=== PATIENT | male | born 1950 | race Caucasian/White ===

== ENCOUNTER 2018-07-09 06:01 | Day surgery (SDC) | payer OTHER ==
[2018-07-09] MEDS ORDERED: fentaNYL 100 MCG/2 ML SDV IV ONE ×4 (06:02→07:19)
[2018-07-09] MEDS ORDERED: Midazolam 1 MG/ML 2 ML SDV IV ONE ×7 (06:02→07:17)
[2018-07-09] MEDS ORDERED: Midazolam 1 MG/ML 2 ML SDV ONE (06:16)
[2018-07-09] MEDS ORDERED: fentaNYL 100 MCG/2 ML SDV ONE (06:17)
[2018-07-09] MEDS ORDERED: Dextrose 5%-0.45% NaCl 1,000 ML IV SCH (06:30)
--- NOTE | 2018-07-09 08:06 | OR ---
DATE: 07/09/2018 PROCEDURE PERFORMED: Total colonoscopy, cold snare polypectomy, and multiple pinch biopsies. INSTRUMENT USED: PCF-H180 Olympus video colonoscope. PREMEDICATIONS: Fentanyl 125 mcg intravenous, Versed 4 mg intravenous. Nasal O2 cannula. The procedure was done under pulse oximetry, BP recording, and cardiac cath tech. INDICATION: The patient with chronic diarrhea, unexplained and not responsive to medical measures. Colonoscopic examination is done for detection of any polypoid lesions and removal, biopsies to be obtained for microscopic colitis. Endoscopic hemostasis therapy if needed. Initial rectal exam was unremarkable. Rigid anoscopy was normal. DESCRIPTION OF PROCEDURE: The colonoscope was passed with ease. Numerous scattered diverticula were noted in the distal left colon along with deformity. In the distal descending colon, pedunculated around 1 cm sized polyp was noted. Photograph was taken. Cold snare polypectomy was done. The tissue was retrieved and sent for histopathology. The scope was passed with ease up to the ileocecal area. Photographs were taken of the normal-appearing cecum identified by thin-lipped ileocecal folds which prevented further advancement of the instrument to visualize terminal ileum. No bleeding was noted from any of the visualized areas at the commencement of the examination. The bowel preparation was found to be adequate, [place] scale 2. No stricture. No vascular ectasia. No large or isolated ulcerations seen. No evidence of diffuse inflammatory bowel disease in the form of friability, contact bleeding, or ulcerations. Probing the proximal sides of folds and flexures, using adequate distention and clearing up the stool material, withdrawal of the scope was made. Multiple pinch biopsies were taken from the normal-appearing mucosa of the mid transverse colon, mid descending colon, and rectosigmoid and sent for any histopathologic evidence of microscopic colitis. No bleeding was noted from any of the visualized areas at the completion of examination. In the cecum, 3 mm sized, benign-appearing polyp was noted. Photograph was taken. Cold snare polypectomy was done. IMPRESSION: 1. Diverticulosis. 2. Multiple colonic polyps. The patient tolerated the procedure well. [facility] /[id number]
--- NOTE | 2018-07-09 09:27 | LETTER ---
07/09/2018 Moni Almonte [place] [facility] [address] [place] [address] RE: MENG CR : 1950 Dear Ms. Almonte: Mr. Meng Cr had colonoscopic examination done this morning and he tolerated the procedure well. I herewith send a copy of the endoscopy note and photographs for your review. Thank you. Sincerely, [facility] /[id number]
== END 2018-07-09 09:25 | disposition home or self-care (01) ==
LOC: DL.ENDO 06:01
PROVIDERS: ATTEND Internal Medicine Gastroenterology
DX: K52.9 Noninfective gastroenteritis and colitis, unspecified (principal); D12.0 Benign neoplasm of cecum; D12.4 Benign neoplasm of descending colon; K63.5 Polyp of colon; K57.30 Diverticulosis of large intestine without perforation or abscess without bleeding; F17.210 Nicotine dependence, cigarettes, uncomplicated; H91.90 Unspecified hearing loss, unspecified ear; R73.9 Hyperglycemia, unspecified
CPT/HCPCS: 45380; 45385; J2250; J3010; J7042

== ENCOUNTER 2020-01-18 08:26 | Day surgery (SDC) | payer OTHER ==
[2020-01-18] MEDS ORDERED: Dexamethasone 4 MG/ML SDV IV ONE (08:27)
[2020-01-18] MEDS ORDERED: Midazolam 1 MG/ML 2 ML SDV IV ONE (08:27)
[2020-01-18] MEDS ORDERED: Sodium Chloride 0.9% 10 ML Syringe IV ONE (08:27)
[2020-01-18] MEDS ORDERED: Proparacaine 0.5% Ophth Soln 15 ML Bottle EYERT ONE (08:30)
[2020-01-18] MEDS ORDERED: Acetaminophen 325 MG Tab PO PRN (08:30)
[2020-01-18] MEDS ORDERED: Cataract Ophth Solution EYERT ONE (08:30)
[2020-01-18] MEDS ORDERED: Povidone-Iodine 5% Sterile Ophth Soln 30 ML Bottle EYERT ONE ×2 (08:30→09:51)
[2020-01-18] MEDS ORDERED: Sodium Chloride 0.9% 10 ML Syringe FLUSH PRN (08:30)
[2020-01-18] MEDS ORDERED: Tropicamide 1% Ophth Soln 15 ML Bottle EYERT ONE (08:30)
[2020-01-18] MEDS ORDERED: Moxifloxacin 0.5% Ophth Soln 3 ML Bottle EYERT ONE (08:30)
[2020-01-18] MEDS ORDERED: Ondansetron 4 MG/2 ML SDV IVPUSH PRN (08:30)
[2020-01-18] MEDS ORDERED: Timolol Maleate 0.5% Ophth Soln 5 ML Bottle EYERT ONE (08:30)
[2020-01-18] MEDS: Phenylephrine 10% Ophth Soln 5 ML Bot EYERT ONE ×2 (08:51→09:25)
[2020-01-18] MEDS ORDERED: Lidocaine 1% 30 ML SDV ONE (09:50)
[2020-01-18] MEDS ORDERED: Apraclonidine 0.5% Ophth Soln 5 ML Bot EYERT ONE (09:50)
[2020-01-18] MEDS ORDERED: Dexamethasone 4 MG/ML SDV ONE (09:50)
[2020-01-18] MEDS ORDERED: Tetracaine HCl/PF 0.5% 4 ML Bottle EYERT ONE (09:51)
[2020-01-18] MEDS ORDERED: Dexamethasone 4 MG/ML SDV IOCULAR ONE (09:51)
[2020-01-18] MEDS ORDERED: Diclofenac Sodium 0.1% Ophth Soln 5 ML Bottle EYERT ONE (09:51)
[2020-01-18] MEDS ORDERED: Vancomycin 500 MG SDV EYERT ONE (09:52)
[2020-01-18] MEDS ORDERED: Phenylephrine 10% Ophth Soln 5 ML Bot EYERT ONE (09:52)
[2020-01-18] MEDS ORDERED: Chondroitin Sulfate/Hyaluronate Sodium Ophth Inj 0.75 ML Syringe EYERT ONE (09:52)
--- NOTE | 2020-01-18 15:56 | OR ---
DATE: 01/18/2020 PREOPERATIVE DIAGNOSIS: Visually significant mixed cataract, right eye. POSTOPERATIVE DIAGNOSIS: Visually significant mixed cataract, right eye. PROCEDURE: Extracapsular cataract extraction with intraocular lens implant, right eye. ANESTHESIA: Topical/local MAC. COMPLICATIONS: None. INDICATION: Mr. Gallardo was seen in the clinic with complaints of blurred vision. Examination revealed visually significant cataract. I explained options, offered cataract surgery and I explained risks, including but not limited to, infection, retinal detachment, loss of vision, need for additional surgery, and risks associated with anesthesia. We discussed implant options. The patient requested a monofocal implant. OPERATIVE DESCRIPTION: After informed consent was obtained and the risks, benefits, and alternatives were explained, the patient was brought to the operative suite and topical anesthesia was administered. The patient was then prepped and draped in the sterile fashion and attention was placed on the right eye. A sterile lid speculum was placed into the right eye to allow operative exposure. A full-thickness paracentesis was made in the temporal portion of the operative eye. Preservative-free lidocaine 0.1 mL was injected into the anterior chamber followed by viscoelastic. A full-thickness corneal incision was then made into the anterior chamber. A bent needle cystotome was used to create a small jose in the anterior capsule. The capsulorrhexis forceps was then used to create a 360-degree curvilinear capsulorrhexis. The nucleus was then removed using a phacoemulsification handpiece and the remaining cortical material was then removed with irrigation and aspiration handpiece. Following removal of the cortical material, the capsular bag was then inspected and noted to be free of any holes or tears. Viscoelastic was then injected into the capsular bag and the intraocular lens was inserted into the capsular bag. The viscoelastic material was then removed from both the anterior and posterior chambers and from behind the IOL. The lens and capsular bag were then reinspected. The IOL was well centered and the capsular bag intact. The wound and paracentesis sites were inspected and hydrated with balanced saline solution. Both were found to be self- sealing. The intraocular pressure was assessed digitally and found to be within normal range. A good red reflex was noted at the completion of the procedure. No complications occurred during the operation. At the completion of the procedure, Maxitrol, Voltaren, and Iopidine drops were placed into the operative eye. A sterile eye shield was placed over the operative eye and the patient was transported to the postoperative recovery area having tolerated the procedure well. Postoperative instructions were given along with a postoperative appointment. The patient was advised to call with any questions or concerns. [facility] /[id number]
== END 2020-01-18 10:55 | disposition home or self-care (01) ==
LOC: DL.SDS 08:26
PROVIDERS: ATTEND Ophthalmology
DX: H25.813 Combined forms of age-related cataract, bilateral (principal); E78.5 Hyperlipidemia, unspecified; I10 Essential (primary) hypertension; F17.210 Nicotine dependence, cigarettes, uncomplicated; K21.9 Gastro-esophageal reflux disease without esophagitis; Z79.899 Other long term (current) drug therapy
CPT/HCPCS: 00142; 66984; J1100; J2001; J2250; J3370; V2632

== ENCOUNTER 2020-01-25 06:56 | Day surgery (SDC) | payer OTHER ==
[~2020-01-25 06:56] MED LIST: Sodium Chloride 0.9% 10 ML Syringe FLUSH PRN
[2020-01-25] MEDS ORDERED: Midazolam 1 MG/ML 2 ML SDV IV ONE (06:57)
[2020-01-25] MEDS ORDERED: Dexamethasone 4 MG/ML SDV IV ONE (06:57)
[2020-01-25] MEDS ORDERED: Sodium Chloride 0.9% 10 ML Syringe IV ONE (06:57)
[2020-01-25] MEDS ORDERED: Moxifloxacin 0.5% Ophth Soln 3 ML Bottle EYELF ONE (07:00)
[2020-01-25] MEDS ORDERED: Acetaminophen 325 MG Tab PO PRN (07:00)
[2020-01-25] MEDS ORDERED: Cataract Ophth Solution EYELF ONE (07:00)
[2020-01-25] MEDS ORDERED: Tropicamide 1% Ophth Soln 15 ML Bottle EYELF ONE (07:00)
[2020-01-25] MEDS ORDERED: Timolol Maleate 0.5% Ophth Soln 5 ML Bottle EYELF ONE (07:00)
[2020-01-25] MEDS ORDERED: Phenylephrine 10% Ophth Soln 5 ML Bot EYELF PRN (07:00)
[2020-01-25] MEDS ORDERED: Proparacaine 0.5% Ophth Soln 15 ML Bottle EYELF ONE (07:00)
[2020-01-25] MEDS ORDERED: Phenylephrine 10% Ophth Soln 5 ML Bot EYELF ONE (07:00)
[2020-01-25] MEDS ORDERED: Ondansetron 4 MG/2 ML SDV IVPUSH PRN (07:00)
[2020-01-25] MEDS ORDERED: Povidone-Iodine 5% Sterile Ophth Soln 30 ML Bottle EYELF ONE ×2 (07:00→08:19)
[2020-01-25] MEDS ORDERED: Tetracaine HCl/PF 0.5% 4 ML Bottle EYELF ONE (08:18)
[2020-01-25] MEDS ORDERED: Lidocaine 1% 30 ML SDV ONE (08:19)
[2020-01-25] MEDS ORDERED: Diclofenac Sodium 0.1% Ophth Soln 5 ML Bottle EYELF ONE (08:20)
[2020-01-25] MEDS ORDERED: Apraclonidine 0.5% Ophth Soln 5 ML Bot EYELF ONE (08:20)
[2020-01-25] MEDS ORDERED: Balanced Salt Solution Ophth Irrig 500 ML Bottle IOCULAR ONE (08:21)
[2020-01-25] MEDS ORDERED: Dexamethasone/Neomycin/Polymyxin B Ophth Oint 3.5 GM Tube EYELF ONE (08:21)
[2020-01-25] MEDS ORDERED: Vancomycin 500 MG SDV EYELF ONE (08:22)
[2020-01-25] MEDS ORDERED: Chondroitin Sulfate/Hyaluronate Sodium Ophth Inj 0.75 ML Syringe EYELF ONE (08:22)
--- NOTE | 2020-01-25 12:02 | OR ---
DATE: 01/25/2020 PREOPERATIVE DIAGNOSIS: Visually significant mixed cataract, left eye. POSTOPERATIVE DIAGNOSIS: Visually significant mixed cataract, left eye. PROCEDURE: Extracapsular cataract extraction with intraocular lens implant, left eye. ANESTHESIA: Topical/local MAC. COMPLICATIONS: None. INDICATION: Mr. Gallardo was seen in the clinic. His examination revealed visually significant mixed cataract. I explained the options, offered cataract surgery, and I explained risks, including, but not limited to, infection, retinal detachment, loss of vision, need for additional surgery, and risks associated with anesthesia. We discussed implant options. He has requested a monofocal implant. OPERATIVE DESCRIPTION: After informed consent was obtained and the risks, benefits, and alternatives were explained, the patient was brought to the operative suite and topical anesthesia was administered. The patient was then prepped and draped in the sterile fashion and attention was placed on the left eye. A sterile lid speculum was placed into the left eye to allow operative exposure. A full-thickness paracentesis was made in the temporal portion of the operative eye. Preservative-free lidocaine 0.1 mL was injected into the anterior chamber followed by viscoelastic. A full-thickness corneal incision was then made into the anterior chamber. A bent needle cystotome was used to create a small jose in the anterior capsule. The capsulorrhexis forceps was then used to create a 360-degree curvilinear capsulorrhexis. The nucleus was then removed using a phacoemulsification handpiece and the remaining cortical material was then removed with irrigation and aspiration handpiece. Following removal of the cortical material, the capsular bag was then inspected and noted to be free of any holes or tears. Viscoelastic was then injected into the capsular bag and the intraocular lens was inserted into the capsular bag. The viscoelastic material was then removed from both the anterior and posterior chambers and from behind the IOL. The lens and capsular bag were then reinspected. The IOL was well centered and the capsular bag intact. The wound and paracentesis sites were inspected and hydrated with balanced saline solution. Both were found to be self- sealing. The intraocular pressure was assessed digitally and found to be within normal range. A good red reflex was noted at the completion of the procedure. No complications occurred during the operation. At the completion of the procedure, Maxitrol, Voltaren, and Iopidine drops were placed into the operative eye. A sterile eye shield was placed over the operative eye and the patient was transported to the postoperative recovery area having tolerated the procedure well. Postoperative instructions were given along with a postoperative appointment. The patient was advised to call with any questions or concerns. [facility] /[id number]
== END 2020-01-25 09:30 | disposition home or self-care (01) ==
LOC: DL.SDS 06:56
PROVIDERS: ATTEND Ophthalmology
DX: H25.812 Combined forms of age-related cataract, left eye (principal); I10 Essential (primary) hypertension; K21.9 Gastro-esophageal reflux disease without esophagitis; F17.210 Nicotine dependence, cigarettes, uncomplicated; N40.0 Benign prostatic hyperplasia without lower urinary tract symptoms; E78.5 Hyperlipidemia, unspecified; Z88.8 Allergy status to other drugs, medicaments and biological substances; Z79.899 Other long term (current) drug therapy
CPT/HCPCS: 00142; 66984; A9270; J1100; J2001; J2250; J3370; V2632

== ENCOUNTER 2023-06-21 14:05 | Emergency (ER) | payer OTHER ==
[2023-06-21] MEDS ORDERED: Sodium Chloride 0.9% 10 ML Syringe FLUSH PRN (14:23)
[2023-06-21] MEDS ORDERED: Ondansetron 4 MG/2 ML SDV IVPUSH ONE (14:24)
[2023-06-21 14:31] LABS: BASOPHILS PERCENT AUTO 0.1 % (0.0-1.0); HEMATOCRIT 36.9 % (40.0-54.0); HEMOGLOBIN 12.6 g/dL (14.0-18.0); LYMPHOCYTES PERCENT AUTO 3.9 % (20.5-50.1); MEAN CORPUSCULAR HGB CONC 34.1 g/dL (33.0-35.0); MEAN CORPUSCULAR VOLUME 102.5 fL (80-100); MONOCYTES PERCENT AUTO 7.2 % (2-8); NEUTROPHILS PERCENT AUTO 88.8 % (42.2-75.2); PLATELET COUNT,PLT 244 10^3/uL (150-450); WHITE BLOOD CELL COUNT,WBC 12.4 10^3/uL (5.0-10.0)
[2023-06-21] MEDS ORDERED: Ketorolac 30 MG/ML SDV IVPUSH ONE (14:46)
[2023-06-21 14:51] LABS: B-TYPE NATRIURETIC PEPTIDE,BNP 85 pg/ml (0-100)
[2023-06-21 14:53] LABS: ALANINE AMINOTRANSFERASE,ALT 303 U/L (16-63); ALBUMIN 3.6 g/dL (3.4-5.0); ALKALINE PHOSPHATASE 291 U/L (46-116); ANION GAP 17.1 mEq/L (7-13); ASPARTATE AMNIOTRANSFERASE,AST 563 U/L (15-37); BILIRUBIN TOTAL 2.5 mg/dL (0.2-1.0); BLOOD UREA NITROGEN,BUN 39 mg/dL (7-18); CALCIUM 8.9 mg/dL (8.5-10.1); CARBON DIOXIDE,CO2 21 mmol/L (21-32); CHLORIDE,CL 99 mmol/L (98-107); CREATININE 3.53 mg/dL (0.70-1.30); EST CRCL DRUG DOSING (CG) 16.61 mL/min; ESTIMATED GFR 17 mL/min (>=60); GLUCOSE RANDOM 213 mg/dL (70-99); POTASSIUM,K 4.1 mmol/L (3.5-5.1); PROTEIN TOTAL,TP 7.1 g/dL (6.4-8.2); SODIUM,NA 133 mmol/L (136-145)
[2023-06-21 14:54] LABS: LIPASE > 250 U/L (16-77)
[2023-06-21] MEDS ORDERED: Morphine 4 MG/ML Syringe IVPUSH ONE (15:29)
[2023-06-21] MEDS ORDERED: metroNIDAZOLE/Normal Saline 500 MG in Premix Bag 1 BAG IV ONE (16:36)
[2023-06-21] MEDS ORDERED: cefTRIAXone 1 GM Vial IVPUSH ONE (16:36)
[2023-06-21] MEDS ORDERED: Sodium Chloride 0.9% 1,000 ML IV SCH (16:45)
== END 2023-06-21 17:45 ==
LOC: DL.ED 14:05
DX: K81.9 Cholecystitis, unspecified (principal); N17.9 Acute kidney failure, unspecified; I10 Essential (primary) hypertension; E78.00 Pure hypercholesterolemia, unspecified; K21.9 Gastro-esophageal reflux disease without esophagitis; Z90.49 Acquired absence of other specified parts of digestive tract; Z79.899 Other long term (current) drug therapy; Z88.8 Allergy status to other drugs, medicaments and biological substances
CPT/HCPCS: 36415; 76705; 80053; 83690; 83880; 84484; 85025; 93005; 93010; 96365; 96375; 99284; 99285; J0696; J1836; J1885; J2270; J2405; J7030; J3490

== ENCOUNTER 2024-12-13 10:15 | Inpatient (IN) | payer OTHER ==
[2024-12-13 11:02] LABS: BASOPHILS PERCENT AUTO 0.5 % (0.0-1.0); EOSINOPHILS PERCENT AUTO 1.3 % (1.0-3.0); HEMATOCRIT 31.8 % (40.0-54.0); HEMOGLOBIN 10.4 g/dL (14.0-18.0); LYMPHOCYTES PERCENT AUTO 9.7 % (20.5-50.1); MEAN CORPUSCULAR HEMOGLOBIN 31.4 pg (27.0-34.0); MEAN CORPUSCULAR HGB CONC 32.7 g/dL (33.0-35.0); MEAN CORPUSCULAR VOLUME 96.1 fL (80-100); MONOCYTES PERCENT AUTO 9.9 % (2-8); NEUTROPHILS PERCENT AUTO 78.6 % (42.2-75.2); PLATELET COUNT,PLT 290 10^3/uL (150-450); RED BLOOD CELL COUNT 3.31 10^6/uL (4.6-6.2); WHITE BLOOD CELL COUNT,WBC 6.4 10^3/uL (5.0-10.0)
[2024-12-13 11:04] LABS: O2 DELIVERY DEVICE OM
[2024-12-13 11:08] LABS: BASE EXCESS VENOUS -6.2 mmol/l ((-2)-(+3)); BICARBONATE,VENOUS 18 mmol/l (19-25); O2 SATURATION VENOUS 43.4 % (60-80); PCO2 VENOUS 34 mmHg (41-51); PH,VENOUS 7.35 (7.31-7.41); PO2 VENOUS 31 mmHg (35-42)
[2024-12-13 11:32] LABS: LACTIC ACID 3.7 mmol/L (0.4-2.0)
[2024-12-13 11:34] LABS: ALBUMIN 3.1 g/dL (3.4-5.0); ANION GAP 21.8 mEq/L (7-13); BILIRUBIN TOTAL 0.7 mg/dL (0.2-1.0); BUN/CREATININE RATIO 31.4 (No establ ref range); CALCIUM 9.8 mg/dL (8.5-10.1); CREATININE 2.36 mg/dL (0.70-1.30); EST CRCL DRUG DOSING (CG) 24.03 mL/min; MAGNESIUM 1.8 mg/dL (1.8-2.4); POTASSIUM,K 3.8 mmol/L (3.5-5.1); PROTEIN TOTAL,TP 7.9 g/dL (6.4-8.2)
[2024-12-13 11:36] LABS: PROTHROMBIN TIME 10.7 SEC (9.0-12.0); PTT,PARTIAL THROMBOPLSTIN TIME 29.2 SEC (22.0-34.0)
[2024-12-13 11:38] LABS: A/G RATIO 0.65
[2024-12-13] MEDS: Iopamidol 755 Mg/ML 100 ML Bottle IVPUSH ONE (11:49)
[2024-12-13] MEDS: Sodium Chloride 0.9% 500 ML IV SCH (12:00)
[2024-12-13] MEDS: Levofloxacin 250 MG Tab PO ONE (12:46)
[2024-12-13] MEDS: Sodium Chloride 0.9% 1,000 ML IV ONE (12:51)
[2024-12-13] MEDS: Albuterol/Ipratropium 3.0-0.5 MG/3 ML Neb Soln NEB ONE (13:30)
[2024-12-13] MEDS ORDERED: Albuterol 6.7 GM Inhaler INH PRN (13:44)
[2024-12-13 14:08] LABS: APPEARANCE,URINE CLEAR (CLEAR); BILIRUBIN,URINE NEGATIVE (NEGATIVE); COLOR,URINE YELLOW (YELLOW); GLUCOSE,URINE NEGATIVE (NEGATIVE); KETONES,URINE NEGATIVE (NEGATIVE); LEUKOCYTE ESTERASE,URINE NEGATIVE (NEGATIVE); NITRITE,URINE NEGATIVE (NEGATIVE); OCCULT BLOOD,URINE NEGATIVE (NEGATIVE); PH,URINE 5.5 (5.0-9.0); PROTEIN,URINE NEGATIVE (NEGATIVE); UROBILINOGEN,URINE 0.2 mg/dL (0.2-1.0)
[2024-12-13 14:24] LABS: BACTERIA,URINE RARE /HPF (0-FEW/HPF); EPITHELIAL CELLS,URINE RARE /HPF (NOT SEEN); RBC,URINE 0-5 /HPF (0-5)
[2024-12-13] MEDS ORDERED: Albuterol/Ipratropium 3.0-0.5 MG/3 ML Neb Soln NEB PRN (17:31)
[2024-12-13] MEDS: methylPREDNISolone Sodium Succinate 40 MG/1 ML SDV IVPUSH SCH (18:17)
[2024-12-13] MEDS: cefTRIAXone 2 GM Vial IVPUSH SCH (18:21)
[2024-12-13] MEDS: Lactated Ringers 1,000 ML IV SCH (18:32)
[2024-12-13] MEDS: Azithromycin 500 MG in Sodium Chloride 0.9% 250 ML IV SCH (18:33)
[2024-12-13] MEDS: Piperacillin/Tazobactam 4.5 GM in Sodium Chloride 0.9% 100 ML IV ONE (18:49)
[2024-12-13] MEDS: Heparin Sodium 5,000 Units/ML Vial SUBCUT SCH (22:25)
[2024-12-13] MEDS: Acetaminophen 325 MG Tab PO PRN (23:59)
[2024-12-14] MEDS: Menthol/Zinc Oxide Ointment 113 GM Tube TOP SCH (00:16)
[2024-12-14 06:35] LABS: BASOPHILS PERCENT AUTO 0.3 % (0.0-1.0); HEMATOCRIT 24.7 % (40.0-54.0); HEMOGLOBIN 8.2 g/dL (14.0-18.0); LYMPHOCYTES PERCENT AUTO 3.6 % (20.5-50.1); MEAN CORPUSCULAR HEMOGLOBIN 32.3 pg (27.0-34.0); MEAN CORPUSCULAR HGB CONC 33.2 g/dL (33.0-35.0); MEAN CORPUSCULAR VOLUME 97.2 fL (80-100); MONOCYTES PERCENT AUTO 2.2 % (2-8); NEUTROPHILS PERCENT AUTO 93.9 % (42.2-75.2); PLATELET COUNT,PLT 244 10^3/uL (150-450); RED BLOOD CELL COUNT 2.54 10^6/uL (4.6-6.2); WHITE BLOOD CELL COUNT,WBC 5.8 10^3/uL (5.0-10.0)
[2024-12-14 06:54] LABS: ALBUMIN 2.4 g/dL (3.4-5.0); ANION GAP 14.3 mEq/L (7-13); BILIRUBIN DIRECT 0.1 mg/dL (0.0-0.2); BILIRUBIN INDIRECT 0.2; BILIRUBIN TOTAL 0.3 mg/dL (0.2-1.0); CREATININE 1.84 mg/dL (0.70-1.30); EST CRCL DRUG DOSING (CG) 30.82 mL/min; MAGNESIUM 1.7 mg/dL (1.8-2.4); POTASSIUM,K 4.3 mmol/L (3.5-5.1); PROTEIN TOTAL,TP 6.2 g/dL (6.4-8.2)
[2024-12-14 06:58] LABS: A/G RATIO 0.63
[2024-12-14 07:22] LABS: CORONAVIRUS COVID-19 NAA NEGATIVE (NEGATIVE); INFLUENZA A NAA NEGATIVE (NEGATIVE); INFLUENZA B NAA NEGATIVE (NEGATIVE); RESPIRATORY SYNCYTIAL VIR NAA NEGATIVE (NEGATIVE)
[2024-12-14] MEDS: Finasteride 5 MG Tab PO SCH (08:49)
[2024-12-14] MEDS: Tamsulosin 0.4 MG Cap.ER PO SCH (08:49)
[2024-12-14] MEDS: Famotidine 20 MG Tab PO SCH (08:49)
[2024-12-14] MEDS: Magnesium Oxide 400 MG Tab PO SCH ×2 (08:49→17:11)
[2024-12-14] MEDS: Magnesium Sulfate 2 GM/50 mL 2 GM in Premix Bag 1 BAG IV ONE (10:41)
[2024-12-14 10:46] LABS: FOLIC ACID > 20.0 ng/mL (8.6-58.9)
[2024-12-15 06:08] LABS: BASOPHILS PERCENT AUTO 0.3 % (0.0-1.0); HEMOGLOBIN 9.1 g/dL (14.0-18.0); LYMPHOCYTES PERCENT AUTO 2.2 % (20.5-50.1); MEAN CORPUSCULAR HEMOGLOBIN 31.8 pg (27.0-34.0); MEAN CORPUSCULAR HGB CONC 32.5 g/dL (33.0-35.0); MEAN CORPUSCULAR VOLUME 97.9 fL (80-100); MONOCYTES PERCENT AUTO 4.3 % (2-8); NEUTROPHILS PERCENT AUTO 93.2 % (42.2-75.2); PLATELET COUNT,PLT 255 10^3/uL (150-450); RED BLOOD CELL COUNT 2.86 10^6/uL (4.6-6.2); WHITE BLOOD CELL COUNT,WBC 13.4 10^3/uL (5.0-10.0)
[2024-12-15 06:26] LABS: ANION GAP 15.5 mEq/L (7-13); CALCIUM 9.6 mg/dL (8.5-10.1); CREATININE 1.68 mg/dL (0.70-1.30); EST CRCL DRUG DOSING (CG) 33.76 mL/min; POTASSIUM,K 4.5 mmol/L (3.5-5.1)
[2024-12-15] MEDS: Furosemide 100 MG/10 ML SDV IVPUSH ONE (08:28)
[2024-12-15] MEDS: Metoprolol Tartrate 25 MG Tab PO SCH (12:04)
[2024-12-16] MEDS: Furosemide 100 MG/10 ML SDV IVPUSH ONE (08:14)
[2024-12-16] MEDS: Metoprolol Tartrate 25 MG Tab PO SCH (08:19)
[2024-12-16] MEDS: Cefdinir 300 MG Cap PO SCH (08:20)
[2024-12-16] MEDS: predniSONE 20 MG Tab PO SCH (08:20)
[2024-12-16] MEDS: Ferrous Sulfate 325 MG Tab PO SCH (17:07)
[2024-12-17 06:40] LABS: HEMATOCRIT 29.4 % (40.0-54.0); HEMOGLOBIN 9.6 g/dL (14.0-18.0); MEAN CORPUSCULAR HEMOGLOBIN 32.3 pg (27.0-34.0); MEAN CORPUSCULAR HGB CONC 32.7 g/dL (33.0-35.0); PLATELET COUNT,PLT 249 10^3/uL (150-450); RED BLOOD CELL COUNT 2.97 10^6/uL (4.6-6.2); WHITE BLOOD CELL COUNT,WBC 10.8 10^3/uL (5.0-10.0)
[2024-12-17 06:42] LABS: BASOPHILS PERCENT AUTO 0.4 % (0.0-1.0); EOSINOPHILS PERCENT AUTO 0.1 % (1.0-3.0); LYMPHOCYTES PERCENT AUTO 4.9 % (20.5-50.1); MONOCYTES PERCENT AUTO 7.6 % (2-8)
[2024-12-17 06:44] LABS: ANION GAP 13.7 mEq/L (7-13); CALCIUM 9.3 mg/dL (8.5-10.1); CREATININE 1.71 mg/dL (0.70-1.30); EST CRCL DRUG DOSING (CG) 33.16 mL/min; MAGNESIUM 1.8 mg/dL (1.8-2.4); POTASSIUM,K 4.7 mmol/L (3.5-5.1)
[2024-12-17 07:07] LABS: LYMPHOCYTES PERCENT MAN 8 % (20-50); MONOCYTES PERCENT MAN 7 % (2-8); SEG NEUTROPHILS PERCENT MAN 85 % (42-75)
[2024-12-18 06:19] LABS: BASOPHILS PERCENT AUTO 0.2 % (0.0-1.0); HEMATOCRIT 29.8 % (40.0-54.0); HEMOGLOBIN 9.4 g/dL (14.0-18.0); LYMPHOCYTES PERCENT AUTO 6.6 % (20.5-50.1); MEAN CORPUSCULAR HEMOGLOBIN 31.8 pg (27.0-34.0); MEAN CORPUSCULAR HGB CONC 31.5 g/dL (33.0-35.0); MEAN CORPUSCULAR VOLUME 100.7 fL (80-100); MONOCYTES PERCENT AUTO 9.9 % (2-8); NEUTROPHILS PERCENT AUTO 82.3 % (42.2-75.2); PLATELET COUNT,PLT 250 10^3/uL (150-450); RED BLOOD CELL COUNT 2.96 10^6/uL (4.6-6.2); WHITE BLOOD CELL COUNT,WBC 9.1 10^3/uL (5.0-10.0)
[2024-12-18 06:39] LABS: ANION GAP 12.1 mEq/L (7-13); CALCIUM 9.2 mg/dL (8.5-10.1); CREATININE 1.65 mg/dL (0.70-1.30); EST CRCL DRUG DOSING (CG) 34.37 mL/min; POTASSIUM,K 5.1 mmol/L (3.5-5.1)
[2024-12-18] MEDS: Furosemide 40 MG Tab PO SCH (09:04)
[2024-12-18] MEDS: Magnesium Sulfate 2 GM/50 mL 2 GM in Premix Bag 1 BAG IV ONE (09:07)
[2024-12-19 06:28] LABS: HEMATOCRIT 29.5 % (40.0-54.0); HEMOGLOBIN 9.5 g/dL (14.0-18.0); MEAN CORPUSCULAR HEMOGLOBIN 32.1 pg (27.0-34.0); MEAN CORPUSCULAR HGB CONC 32.2 g/dL (33.0-35.0); MEAN CORPUSCULAR VOLUME 99.7 fL (80-100); PLATELET COUNT,PLT 243 10^3/uL (150-450); RED BLOOD CELL COUNT 2.96 10^6/uL (4.6-6.2); WHITE BLOOD CELL COUNT,WBC 9.2 10^3/uL (5.0-10.0)
[2024-12-19 06:43] LABS: BASOPHILS PERCENT AUTO 0.2 % (0.0-1.0); EOSINOPHILS PERCENT AUTO 1.6 % (1.0-3.0); LYMPHOCYTES PERCENT AUTO 8.3 % (20.5-50.1); MONOCYTES PERCENT AUTO 8.5 % (2-8); NEUTROPHILS PERCENT AUTO 81.4 % (42.2-75.2)
[2024-12-19 06:49] LABS: CALCIUM 9.3 mg/dL (8.5-10.1); CREATININE 1.69 mg/dL (0.70-1.30); EST CRCL DRUG DOSING (CG) 33.56 mL/min; MAGNESIUM 2.1 mg/dL (1.8-2.4)
[2024-12-19 07:27] LABS: EOSINOPHILS PERCENT MAN 1 % (1-3); LYMPHOCYTES PERCENT MAN 6 % (20-50); MONOCYTES PERCENT MAN 7 % (2-8); SEG NEUTROPHILS PERCENT MAN 86 % (42-75)
[2024-12-20 06:46] LABS: HEMATOCRIT 28.8 % (40.0-54.0); HEMOGLOBIN 9.2 g/dL (14.0-18.0); MEAN CORPUSCULAR HEMOGLOBIN 31.6 pg (27.0-34.0); MEAN CORPUSCULAR HGB CONC 31.9 g/dL (33.0-35.0); PLATELET COUNT,PLT 207 10^3/uL (150-450); RED BLOOD CELL COUNT 2.91 10^6/uL (4.6-6.2); WHITE BLOOD CELL COUNT,WBC 7.2 10^3/uL (5.0-10.0)
[2024-12-20 06:55] LABS: BASOPHILS PERCENT AUTO 0.1 % (0.0-1.0); EOSINOPHILS PERCENT AUTO 4.3 % (1.0-3.0); MONOCYTES PERCENT AUTO 10.7 % (2-8); NEUTROPHILS PERCENT AUTO 76.9 % (42.2-75.2)
[2024-12-20 07:12] LABS: ALBUMIN 2.4 g/dL (3.4-5.0); ANION GAP 12.6 mEq/L (7-13); BILIRUBIN TOTAL 0.5 mg/dL (0.2-1.0); BUN/CREATININE RATIO 37.6 (No establ ref range); CALCIUM 9.1 mg/dL (8.5-10.1); CREATININE 1.7 mg/dL (0.70-1.30); EST CRCL DRUG DOSING (CG) 33.36 mL/min; MAGNESIUM 1.9 mg/dL (1.8-2.4); POTASSIUM,K 4.6 mmol/L (3.5-5.1); PROTEIN TOTAL,TP 6.1 g/dL (6.4-8.2)
[2024-12-20 07:19] LABS: A/G RATIO 0.65
[2024-12-20 07:31] LABS: EOSINOPHILS PERCENT MAN 3 % (1-3); LYMPHOCYTES PERCENT MAN 8 % (20-50); MONOCYTES PERCENT MAN 11 % (2-8); SEG NEUTROPHILS PERCENT MAN 78 % (42-75)
[2024-12-21 06:37] LABS: BASOPHILS PERCENT AUTO 0.3 % (0.0-1.0); EOSINOPHILS PERCENT AUTO 4.1 % (1.0-3.0); HEMATOCRIT 29.5 % (40.0-54.0); HEMOGLOBIN 9.3 g/dL (14.0-18.0); LYMPHOCYTES PERCENT AUTO 9.2 % (20.5-50.1); MEAN CORPUSCULAR HEMOGLOBIN 31.2 pg (27.0-34.0); MEAN CORPUSCULAR HGB CONC 31.5 g/dL (33.0-35.0); NEUTROPHILS PERCENT AUTO 73.4 % (42.2-75.2); PLATELET COUNT,PLT 196 10^3/uL (150-450); RED BLOOD CELL COUNT 2.98 10^6/uL (4.6-6.2); WHITE BLOOD CELL COUNT,WBC 6.1 10^3/uL (5.0-10.0)
[2024-12-21 07:06] LABS: ALBUMIN 2.6 g/dL (3.4-5.0); ANION GAP 12.5 mEq/L (7-13); BILIRUBIN TOTAL 0.5 mg/dL (0.2-1.0); BUN/CREATININE RATIO 33.9 (No establ ref range); CALCIUM 9.4 mg/dL (8.5-10.1); CREATININE 1.86 mg/dL (0.70-1.30); EST CRCL DRUG DOSING (CG) 30.49 mL/min; MAGNESIUM 1.9 mg/dL (1.8-2.4); POTASSIUM,K 4.5 mmol/L (3.5-5.1); PROTEIN TOTAL,TP 6.4 g/dL (6.4-8.2)
[2024-12-21 07:07] LABS: A/G RATIO 0.68
== END 2024-12-21 11:08 | DRG 189 ==
LOC: DL.ED 10:15 → DL.MS 14:12
PROVIDERS: ADMIT Internal Medicine; ATTEND Student in an Organized Health Care Education/Training Program
DX: J96.01 Acute respiratory failure with hypoxia (principal); J44.1 Chronic obstructive pulmonary disease with (acute) exacerbation; C34.90 Malignant neoplasm of unspecified part of unspecified bronchus or lung; N17.9 Acute kidney failure, unspecified; Z66 Do not resuscitate; Z79.02 Long term (current) use of antithrombotics/antiplatelets; Z79.51 Long term (current) use of inhaled steroids; F03.90 Unspecified dementia, unspecified severity, without behavioral disturbance, psychotic disturbance, mood disturbance, and anxiety; H26.9 Unspecified cataract; H91.90 Unspecified hearing loss, unspecified ear; E78.00 Pure hypercholesterolemia, unspecified; E83.42 Hypomagnesemia; I50.9 Heart failure, unspecified; K21.9 Gastro-esophageal reflux disease without esophagitis; I11.0 Hypertensive heart disease with heart failure; D64.9 Anemia, unspecified; E86.1 Hypovolemia; N40.0 Benign prostatic hyperplasia without lower urinary tract symptoms; E86.0 Dehydration; Z87.891 Personal history of nicotine dependence; Z88.8 Allergy status to other drugs, medicaments and biological substances; Z79.899 Other long term (current) drug therapy; Z90.49 Acquired absence of other specified parts of digestive tract
CPT/HCPCS: 0241U; 36415; 71045; 71275; 80048; 80053; 80076; 81001; 82272; 82607; 82728; 82746; 82803; 83540; 83550; 83605; 83735; 83880; 84100; 84484; 85025; 85379; 85610; 85730; 86738; 87040; 87081; 87899; 93005; 94640; 96360; 97110; 97161; 97165; 97530; 99223; 99233; 99238; 99285; A9270-GY; J0456; J0696; J1644; J1938; J2919; J3475; J7030; J7050; J7120; J7512; Q9967

== ENCOUNTER 2025-02-15 13:51 | Inpatient (IN) | payer OTHER ==
[2025-02-15 14:14] LABS: BASOPHILS PERCENT AUTO 0.5 % (0.0-1.0); EOSINOPHILS PERCENT AUTO 1.7 % (1.0-3.0); LYMPHOCYTES PERCENT AUTO 3.2 % (20.5-50.1); MONOCYTES PERCENT AUTO 6.7 % (2-8); NEUTROPHILS PERCENT AUTO 87.9 % (42.2-75.2); PLATELET COUNT,PLT 239 10^3/uL (150-450); RED BLOOD CELL COUNT 3.66 10^6/uL (4.6-6.2); WHITE BLOOD CELL COUNT,WBC 9.6 10^3/uL (5.0-10.0)
[2025-02-15 14:41] LABS: B-TYPE NATRIURETIC PEPTIDE,BNP 46 pg/ml (0-100)
[2025-02-15 14:42] LABS: INR 1.0 (0.9-1.2); PTT,PARTIAL THROMBOPLSTIN TIME 24.0 SEC (22.0-34.0)
[2025-02-15 14:44] LABS: A/G RATIO 0.86; ALANINE AMINOTRANSFERASE,ALT 26 U/L (16-63); ASPARTATE AMNIOTRANSFERASE,AST 39 U/L (15-37); BILIRUBIN TOTAL 0.9 mg/dL (0.2-1.0); BLOOD UREA NITROGEN,BUN 37 mg/dL (7-18); CARBON DIOXIDE,CO2 29 mmol/L (21-32); CHLORIDE,CL 101 mmol/L (98-107); CREATININE 1.41 mg/dL (0.70-1.30); ESTIMATED GFR 52 mL/min (>=60); GLUCOSE RANDOM 105 mg/dL (70-99); POTASSIUM,K 5.4 mmol/L (3.5-5.1); PROTEIN TOTAL,TP 6.7 g/dL (6.4-8.2); SODIUM,NA 138 mmol/L (136-145)
[2025-02-15] MEDS: Iopamidol 755 Mg/ML 100 ML Bottle IVPUSH ONE (14:48)
[2025-02-15 14:49] LABS: LACTIC ACID 2.8 mmol/L (0.4-2.0)
[2025-02-15] MEDS: Magnesium Sulfate 2 GM/50 mL 2 GM in Premix Bag 1 BAG IV ONE ×2 (15:20→21:05)
[2025-02-15] MEDS ORDERED: Ondansetron 4 MG/2 ML SDV IVPUSH PRN (18:26)
[2025-02-15] MEDS: Lactated Ringers 1,000 ML IV SCH (20:07)
[2025-02-15] MEDS: methylPREDNISolone Sodium Succinate 40 MG/1 ML SDV IVPUSH STA (20:10)
[2025-02-15] MEDS: Furosemide 40 MG/4 ML VIAL IVPUSH STA (20:10)
[2025-02-15] MEDS: Amiodarone 150 MG/3 ML SDV IVPUSH ONE (20:30)
[2025-02-15 20:32] LABS: LACTIC ACID 7.4 mmol/L (0.4-2.0)
[2025-02-15] MEDS: methylPREDNISolone Sodium Succinate 40 MG/1 ML SDV ONE (20:51)
[2025-02-15 20:53] LABS: O2 DELIVERY DEVICE NASAL CANNULA
[2025-02-15] MEDS: Amiodarone 150 MG/3 ML SDV ONE (20:53)
[2025-02-15] MEDS: Norepinephrine Bit/D5W Premix 250 ML IV SCH (20:56)
[2025-02-15 20:58] LABS: BASE EXCESS ARTERIAL -5 mmol/L ((-2)-(+3)); BICARBONATE,ARTERIAL 18.8 mmol/L (22-26); O2 SATURATION ARTERIAL 100 % (95-100); PCO2 ARTERIAL 33 mmHg (35-45); PH,ARTERIAL 7.37 (7.35-7.45); PO2 ARTERIAL 190 mmHg (70-100)
[2025-02-15] MEDS: Heparin Sodium 5,000 Units/ML Vial IVPUSH ONE (21:03)
[2025-02-15] MEDS: VANCOmycin 1.5 GM/300 ML 1.5 GM in Premix Bag 1 BAG IV ONE (21:05)
[2025-02-15] MEDS: Midazolam 1 MG/ML 2 ML SDV IVPUSH ONE (21:06)
[2025-02-15] MEDS: Heparin Sodium/0.45% NaCl 25,000 UNITS/500 ML BAG IV SCH (21:48)
[2025-02-15] MEDS ORDERED: Heparin Sodium 5,000 Units/ML Vial SUBCUT SCH (22:00)
[2025-02-16 04:36] LABS: BASOPHILS PERCENT AUTO 0.2 % (0.0-1.0); EOSINOPHILS PERCENT AUTO 0.0 % (1.0-3.0); LYMPHOCYTES PERCENT AUTO 0.6 % (20.5-50.1); MONOCYTES PERCENT AUTO 1.3 % (2-8); NEUTROPHILS PERCENT AUTO 97.9 % (42.2-75.2); PLATELET COUNT,PLT 270 10^3/uL (150-450); RED BLOOD CELL COUNT 3.21 10^6/uL (4.6-6.2); WHITE BLOOD CELL COUNT,WBC 18.7 10^3/uL (5.0-10.0)
[2025-02-16 04:56] LABS: ALANINE AMINOTRANSFERASE,ALT 22.0 U/L (16-63); ASPARTATE AMNIOTRANSFERASE,AST 15.0 U/L (15-37); BILIRUBIN DIRECT 0.2 mg/dL (0.0-0.2); BILIRUBIN INDIRECT 0.4; BILIRUBIN TOTAL 0.6 mg/dL (0.2-1.0); BLOOD UREA NITROGEN,BUN 39.0 mg/dL (7-18); CARBON DIOXIDE,CO2 24.0 mmol/L (21-32); CHLORIDE,CL 100.0 mmol/L (98-107); CREATININE 2.16 mg/dL (0.70-1.30); EST CRCL DRUG DOSING (CG) 20.58 mL/min; GLUCOSE RANDOM 264.0 mg/dL (70-99); PHOSPHORUS 4.5 mg/dL (2.6-4.7); POTASSIUM,K 4.1 mmol/L (3.5-5.1); PROTEIN TOTAL,TP 6.2 g/dL (6.4-8.2); SODIUM,NA 136.0 mmol/L (136-145)
[2025-02-16 04:59] LABS: A/G RATIO 0.68; ESTIMATED GFR 31.0 mL/min (>=60)
[2025-02-16] MEDS: Amiodarone 360 MG/200 ML 360 MG/200 ML BAG IV ONE ×2 (08:20)
[2025-02-16] MEDS: Sodium Chloride 0.9% 10 ML Syringe FLUSH PRN (10:09)
[2025-02-17 06:46] LABS: CREATININE 2.56 mg/dL (0.70-1.30); EST CRCL DRUG DOSING (CG) 17.36 mL/min; VANCOMYCIN RANDOM 25.3 ug/mL (No Normal Range)
[2025-02-17 06:47] LABS: ESTIMATED GFR 25.0 mL/min (>=60)
[2025-02-17 08:44] LABS: BASOPHILS PERCENT AUTO 0.3 % (0.0-1.0); EOSINOPHILS PERCENT AUTO 5.8 % (1.0-3.0); LYMPHOCYTES PERCENT AUTO 2.1 % (20.5-50.1); MONOCYTES PERCENT AUTO 3.5 % (2-8); NEUTROPHILS PERCENT AUTO 88.3 % (42.2-75.2); PLATELET COUNT,PLT 185 10^3/uL (150-450); RED BLOOD CELL COUNT 2.58 10^6/uL (4.6-6.2); WHITE BLOOD CELL COUNT,WBC 10.9 10^3/uL (5.0-10.0)
[2025-02-17 08:57] LABS: BLOOD UREA NITROGEN,BUN 53.0 mg/dL (7-18); CARBON DIOXIDE,CO2 26.0 mmol/L (21-32); CHLORIDE,CL 102.0 mmol/L (98-107); CREATININE 2.72 mg/dL (0.70-1.30); EST CRCL DRUG DOSING (CG) 16.34 mL/min; GLUCOSE RANDOM 136.0 mg/dL (70-99); POTASSIUM,K 4.0 mmol/L (3.5-5.1); SODIUM,NA 139.0 mmol/L (136-145)
[2025-02-17 08:58] LABS: ESTIMATED GFR 23.0 mL/min (>=60)
[2025-02-17] MEDS: Heparin Sodium 5,000 Units/ML Vial IV ONE (10:04)
[2025-02-17] MEDS: Lactulose Soln 10 GM/15 ML 30 ML UD Cup PO ONE (12:34)
[2025-02-17] MEDS: Metoprolol Tartrate 5 MG/5 ML SDV IVPUSH ONE (17:05)
[2025-02-17] MEDS: Heparin Sodium 5,000 Units/ML Vial IVPUSH ONE (17:05)
[2025-02-18 06:27] LABS: BASOPHILS PERCENT AUTO 0.3 % (0.0-1.0); EOSINOPHILS PERCENT AUTO 6.2 % (1.0-3.0); LYMPHOCYTES PERCENT AUTO 4.7 % (20.5-50.1); MONOCYTES PERCENT AUTO 5.2 % (2-8); NEUTROPHILS PERCENT AUTO 83.6 % (42.2-75.2); PLATELET COUNT,PLT 171 10^3/uL (150-450); RED BLOOD CELL COUNT 2.43 10^6/uL (4.6-6.2); WHITE BLOOD CELL COUNT,WBC 7.9 10^3/uL (5.0-10.0)
[2025-02-18 06:40] LABS: CREATININE 2.4 mg/dL (0.70-1.30); EST CRCL DRUG DOSING (CG) 18.52 mL/min
[2025-02-18 06:49] LABS: BLOOD UREA NITROGEN,BUN 52.0 mg/dL (7-18); CARBON DIOXIDE,CO2 27.0 mmol/L (21-32); CHLORIDE,CL 106.0 mmol/L (98-107); CREATININE 2.42 mg/dL (0.70-1.30); EST CRCL DRUG DOSING (CG) 18.37 mL/min; GLUCOSE RANDOM 103.0 mg/dL (70-99); POTASSIUM,K 4.2 mmol/L (3.5-5.1); SODIUM,NA 141.0 mmol/L (136-145); VANCOMYCIN RANDOM 19.6 ug/mL (No Normal Range)
[2025-02-18 06:53] LABS: ESTIMATED GFR 27.0 mL/min (>=60)
[2025-02-18 06:55] LABS: ESTIMATED GFR 27.0 mL/min (>=60)
[2025-02-18] MEDS: methylPREDNISolone Sodium Succinate 40 MG/1 ML SDV IVPUSH SCH (09:25)
[2025-02-18] MEDS: Furosemide 40 MG/4 ML VIAL IVPUSH ONE (10:15)
[2025-02-18] MEDS: Metoprolol Tartrate 5 MG/5 ML SDV IVPUSH SCH (10:25)
[2025-02-18 11:53] LABS: O2 DELIVERY DEVICE NASAL CANNULA
[2025-02-18 11:55] LABS: BASE EXCESS ARTERIAL -3 mmol/L ((-2)-(+3)); BICARBONATE,ARTERIAL 21.4 mmol/L (22-26); O2 FLOW RATE 6; O2 SATURATION ARTERIAL 91 % (95-100); PCO2 ARTERIAL 37 mmHg (35-45); PH,ARTERIAL 7.38 (7.35-7.45); PO2 ARTERIAL 64 mmHg (70-100)
[2025-02-19 06:27] LABS: PLATELET COUNT,PLT 159 10^3/uL (150-450); RED BLOOD CELL COUNT 2.95 10^6/uL (4.6-6.2); WHITE BLOOD CELL COUNT,WBC 8.0 10^3/uL (5.0-10.0)
[2025-02-19 06:33] LABS: BASOPHILS PERCENT AUTO 0.4 % (0.0-1.0); EOSINOPHILS PERCENT AUTO 0.0 % (1.0-3.0); LYMPHOCYTES PERCENT AUTO 5.8 % (20.5-50.1); MONOCYTES PERCENT AUTO 1.5 % (2-8); NEUTROPHILS PERCENT AUTO 92.3 % (42.2-75.2)
[2025-02-19 06:42] LABS: BLOOD UREA NITROGEN,BUN 48.0 mg/dL (7-18); CARBON DIOXIDE,CO2 26.0 mmol/L (21-32); CHLORIDE,CL 105.0 mmol/L (98-107); CREATININE 2.12 mg/dL (0.70-1.30); EST CRCL DRUG DOSING (CG) 20.96 mL/min; GLUCOSE RANDOM 143.0 mg/dL (70-99); POTASSIUM,K 3.5 mmol/L (3.5-5.1); SODIUM,NA 139.0 mmol/L (136-145)
[2025-02-19 06:48] LABS: ESTIMATED GFR 32.0 mL/min (>=60)
[2025-02-19 07:08] LABS: BAND PERCENT MAN 2 %; LYMPHOCYTES PERCENT MAN 6 % (20-50); MONOCYTES PERCENT MAN 2 % (2-8); SEG NEUTROPHILS PERCENT MAN 90 % (42-75)
[2025-02-19] MEDS ORDERED: Metoprolol Tartrate 5 MG/5 ML SDV IVPUSH PRN (09:52)
[2025-02-19] MEDS ORDERED: Flumazenil 0.1 MG/ML 5 ML MDV IVPUSH PRN (09:55)
[2025-02-19] MEDS ORDERED: LORazepam 2 MG/ML SDV IVPUSH PRN ×2 (09:55→13:56)
[2025-02-19] MEDS: Scopalamine 1mg/3day Transdermal Patch TRDERM ONE (20:37)
[2025-02-19] MEDS ORDERED: Saccharomyces Boulardii (Probiotic) 250 MG Cap PO SCH (21:00)
[2025-02-22 18:46] LABS: MYCOPLASMA IGM 0.04 U/L (<=0.76)
[2025-02-24] MEDS: EPINEPHrine 1 MG/ML SDV ONE ×2 (09:16→11:41)
[2025-02-24] MEDS: EPINEPHrine 1 MG/ML SDV IM ONE (11:46)
== END 2025-02-24 10:15 | DRG 871 ==
LOC: DL.ED 13:51 → DL.MS 16:14
PROVIDERS: ADMIT Internal Medicine; ATTEND Internal Medicine
PROC: 4A133R1 Monitoring of Arterial Saturation, Peripheral, Percutaneous Approach (ICD-10-PCS; principal; 2025-02-15)
PROC: 3E04329 Introduction of Other Anti-infective into Central Vein, Percutaneous Approach (ICD-10-PCS; principal; 2025-02-15)
PROC: 3E043XZ Introduction of Vasopressor into Central Vein, Percutaneous Approach (ICD-10-PCS; principal; 2025-02-15)
PROC: 02HV33Z Insertion of Infusion Device into Superior Vena Cava, Percutaneous Approach (ICD-10-PCS; 2025-02-15)
PROC: 5A09357 Assistance with Respiratory Ventilation, Less than 24 Consecutive Hours, Continuous Positive Airway Pressure (ICD-10-PCS; 2025-02-15)
DX: A41.9 Sepsis, unspecified organism (principal); J18.9 Pneumonia, unspecified organism; J90 Pleural effusion, not elsewhere classified; I10 Essential (primary) hypertension; J96.21 Acute and chronic respiratory failure with hypoxia; R65.21 Severe sepsis with septic shock; E87.20 Acidosis, unspecified; J44.0 Chronic obstructive pulmonary disease with (acute) lower respiratory infection; I13.0 Hypertensive heart and chronic kidney disease with heart failure and stage 1 through stage 4 chronic kidney disease, or unspecified chronic kidney disease; C34.90 Malignant neoplasm of unspecified part of unspecified bronchus or lung; E44.0 Moderate protein-calorie malnutrition; I48.92 Unspecified atrial flutter; Z51.5 Encounter for palliative care; Z66 Do not resuscitate; H91.90 Unspecified hearing loss, unspecified ear; E78.00 Pure hypercholesterolemia, unspecified; K52.9 Noninfective gastroenteritis and colitis, unspecified; K21.9 Gastro-esophageal reflux disease without esophagitis; N40.0 Benign prostatic hyperplasia without lower urinary tract symptoms; F03.90 Unspecified dementia, unspecified severity, without behavioral disturbance, psychotic disturbance, mood disturbance, and anxiety; I50.9 Heart failure, unspecified; J43.9 Emphysema, unspecified; E83.42 Hypomagnesemia; E87.5 Hyperkalemia; N18.9 Chronic kidney disease, unspecified; I48.91 Unspecified atrial fibrillation; J84.10 Pulmonary fibrosis, unspecified; D63.1 Anemia in chronic kidney disease; Z79.51 Long term (current) use of inhaled steroids; Z79.899 Other long term (current) drug therapy; Z87.81 Personal history of (healed) traumatic fracture; Z90.49 Acquired absence of other specified parts of digestive tract; Z98.890 Other specified postprocedural states; Z87.891 Personal history of nicotine dependence; Z88.8 Allergy status to other drugs, medicaments and biological substances; Z79.52 Long term (current) use of systemic steroids; Z68.29 Body mass index [BMI] 29.0-29.9, adult; Z97.8 Presence of other specified devices
CPT/HCPCS: 36415; 71045; 71275; 80053; 83605; 83735; 83880; 84145; 84484; 85025; 85379; 85610; 85730; 86140; 87040; 96361; 96365; 96375; 99285 ×2; A9270; J2543; J3475; J7030; Q9967; 36430; 36600; 51702; 80048; 80076; 80202; 82272; 82565; 82803; 84100; 86738; 86850; 86900; 86901; 86920; 86922; 87081; 87899; 93005; 94010; 94640; 94660; J0169; J0282; J0456; J0692; J0696; J1644; J1938; J2003; J2250; J2270; J2470; J2919; J3360; J3373; J3375; J3490; J7050; J7120; P9016